=== PATIENT | female | born 1985 | race African-American/Black ===

== ENCOUNTER 2017-02-25 11:16 | Emergency (ER) | payer SELFPAY ==
[2017-02-25 11:38] LABS: URINE HCG POC HCG NEGATIVE (Negative)
[2017-02-25 11:53] LABS: BILIRUBIN,URINE NEGATIVE (NEG); CLARITY,URINE CLEAR; COLOR,URINE YELLOW; GLUCOSE,URINE NEGATIVE (NEG); NITRITE,URINE NEGATIVE (NEG); PROTEIN,URINE NEGATIVE (NEG-TRACE); RBC,URINE 0 /HPF (0-2); SQUAMOUS EPITHELIAL CELL,UR MOD /LPF; UROBILINOGEN,URINE 0.2 mg/dL (0.2 mg/dL)
[2017-02-25 11:54] LABS: BACTERIA,URINE MANY /HPF (0-FEW); BASO # 0.1 x10^3/uL (0.0-0.2); BASO % 1 % (0-3); EOS % 0 % (0-3); HEMOGLOBIN 7.9 g/dL (12.0-15.5); LYMPH # 1.4 x10^3/uL (1.0-4.8); LYMPH % 9 % (24-48); MEAN CORPUSCULAR HEMOGLOBIN 19 pg (25-35); MEAN CORPUSCULAR HGB CONC 30 g/dL (31-37); MEAN CORPUSCULAR VOLUME 63 fL (79-100); MONO # 0.9 x10^3/uL (0.0-1.1); MONO % 6 % (0-9); NEUT # 12.7 x10^3uL (1.8-7.7); NEUT % 85 % (31-73); PLATELET COUNT 477 x10^3/uL (140-400); RED BLOOD COUNT 4.13 x10^6/uL (3.50-5.40); RED CELL DISTRIBUTION WIDTH 19.8 % (11.5-14.5); WBC,URINE >40 /HPF (0-4)
[2017-02-25 11:56] LABS: YEAST,URINE PRESENT /HPF
[2017-02-25 11:58] LABS: ADD MAN DIFF? YES
[2017-02-25 12:01] LABS: ANION GAP 12 (6-14); BLOOD UREA NITROGEN 9 mg/dL (7-20); BUN/CREATININE RATIO 11 (6-20); CALCIUM 8.5 mg/dL (8.5-10.1); CARBON DIOXIDE 27 mmol/L (21-32); CHLORIDE 102 mmol/L (98-107); CREATININE 0.8 mg/dL (0.6-1.0); GFR 102.6; GLUCOSE 111 mg/dL (70-99); POTASSIUM 3.4 mmol/L (3.5-5.1); SODIUM 141 mmol/L (136-145)
[2017-02-25 12:07] LABS: ALBUMIN 3.3 g/dL (3.4-5.0); ALBUMIN/GLOBULIN RATIO 0.9 (1.0-1.7); ALK PHOS 106 U/L (46-116); ALT (SGPT) 14 U/L (14-59); AST (SGOT) 24 U/L (15-37); TOTAL BILIRUBIN 0.3 mg/dL (0.2-1.0); TOTAL PROTEIN 7.1 g/dL (6.4-8.2)
[2017-02-25 12:14] LABS: INFLUENZA A PATIENT NEGATIVE (NEGATIVE); INFLUENZA B PATIENT NEGATIVE (NEGATIVE); OBC FLU VALID
[2017-02-25] MEDS: IV NORMAL SALINE 1000ML BAG 1,000 ML IV (12:30)
[2017-02-25] MEDS: ONDANSETRON PF 4 MG/2 ML VIAL. IV (12:30)
[2017-02-25] MEDS: KETOROLAC 30 MG/ML INJ. IV (12:31)
[2017-02-25 12:51] LABS: % BASOS 1 % (0-3); % LYMPHS 8 % (24-48); % MONOS 2 % (0-10); % SEGS 89 % (35-66); ANISOCYTOSIS MOD; HYPOCHROMIA MARKED; MICROCYTOSIS MARKED; PLT ESTIMATE INCREASED (ADEQUATE); TEAR DROP CELLS OCC
[2017-02-25 12:52] LABS: OVALOCYTES OCC; POLYCHROMASIA SLIGHT; SCHISTOCYTES OCC
[2017-02-25 12:53] LABS: STOMATOCYTES FEW
[2017-02-25 13:23] LABS: NEGATIVE OBC STREP NEG; POSITIVE OBC STREP POS
== END 2017-02-25 13:40 | disposition home or self-care (01) ==
LOC: ER 11:16
DX: N39.0 Urinary tract infection, site not specified (principal); J02.0 Streptococcal pharyngitis; Z90.721 Acquired absence of ovaries, unilateral
CPT/HCPCS: 36415; 80053; 81001; 81025; 85007; 85025; 87070; 87086; 87804; 87804-59; 87880; 93005; 96361; 96374; 96375; 99285-25; J0690; J1885; J2405; J7030

== ENCOUNTER 2017-11-27 08:08 | Emergency (ER) | payer SELFPAY ==
[~2017-11-27] VITALS: Ht 165.1 cm; Wt 74.8 kg
[~2017-11-27 08:08] MED LIST: IBUP-1007 PO; NITR100C62 PO; ONDA4TAB10 SL
[2017-11-27 08:26] VITALS: BP 133/85
[2017-11-27 08:36] LABS: BILIRUBIN,URINE NEGATIVE (NEG); CLARITY,URINE CLEAR; COLOR,URINE YELLOW; NITRITE,URINE NEGATIVE (NEG); PH,URINE 5.5; PROTEIN,URINE NEGATIVE (NEG-TRACE); UROBILINOGEN,URINE 0.2 mg/dL (0.2 mg/dL)
[2017-11-27] MEDS ORDERED: ONDANSETRON PF 4 MG/2 ML VIAL. IV ONE (08:45)
[2017-11-27] MEDS ORDERED: IV NORMAL SALINE 1000ML BAG 1,000 ML IV ONE (08:45)
[2017-11-27 08:57] LABS: BASO # 0.1 x10^3/uL (0.0-0.2); BASO % 1 % (0-3); EOS # 0.1 x10^3/uL (0.0-0.7); EOS % 1 % (0-3); HEMATOCRIT 32.4 % (36.0-47.0); HEMOGLOBIN 10.1 g/dL (12.0-15.5); LYMPH # 1.6 x10^3/uL (1.0-4.8); LYMPH % 21 % (24-48); MEAN CORPUSCULAR HEMOGLOBIN 20 pg (25-35); MEAN CORPUSCULAR HGB CONC 31 g/dL (31-37); MEAN CORPUSCULAR VOLUME 65 fL (79-100); MONO # 0.6 x10^3/uL (0.0-1.1); MONO % 8 % (0-9); NEUT # 5.3 x10^3uL (1.8-7.7); NEUT % 69 % (31-73); PLATELET COUNT 411 x10^3/uL (140-400); RED CELL DISTRIBUTION WIDTH 18.8 % (11.5-14.5); WHITE BLOOD COUNT 7.7 x10^3/uL (4.0-11.0)
[2017-11-27 09:06] LABS: CALCIUM 8.9 mg/dL (8.5-10.1); CREATININE 0.7 mg/dL (0.6-1.0); GFR 118.9; POTASSIUM 3.2 mmol/L (3.5-5.1)
[2017-11-27 09:08] LABS: RBC,URINE 0 /HPF (0-2); SQUAMOUS EPITHELIAL CELL,UR MOD /LPF
[2017-11-27 09:09] LABS: BACTERIA,URINE FEW /HPF (0-FEW)
[2017-11-27 09:12] LABS: ALBUMIN 3.4 g/dL (3.4-5.0); ALBUMIN/GLOBULIN RATIO 0.7 (1.0-1.7); TOTAL BILIRUBIN 0.2 mg/dL (0.2-1.0)
--- NOTE | 2017-11-27 09:16 | PHYS DOC ---
Past Medical History Past Medical History: Other Additional Past Medical Histor: VERTIGO Past Surgical History: , Oophorectomy, Other Additional Past Surgical Histo: L OVARIAN CYST REMOVED Alcohol Use: Occasionally Drug Use: None Adult General Chief Complaint Chief Complaint: DIZZY/LIGHT HEADED HPI HPI Patient is a 32 year old female presenting with urinary frequency and a slight low back pain that has been going on for 3 days. Patient denies any nausea vomiting. She states she could be . Her last menstrual cycle was October 21, 2017. She is a 2 para 2. Denies any abdominal pain. She is also complaining of slight dizziness. She states she has history of vertigo. She states the dizziness is worse when she is ambulating. Review of Systems Review of Systems Constitutional: Denies fever or chills [] Eyes: Denies change in visual acuity, redness, or eye pain [] HENT: Denies nasal congestion or sore throat [] Respiratory: Denies cough or shortness of breath [] Cardiovascular: No additional information not addressed in HPI [] GI: Denies abdominal pain, nausea, vomiting, bloody stools or diarrhea [] : Reports urinary frequency. Denies dysuria or hematuria [] Musculoskeletal: Reports low back pain denies joint pain [] Integument: Denies rash or skin lesions [] Neurologic: Denies headache, focal weakness or sensory changes [] All other systems were reviewed and found to be within normal limits, except as documented in this note. Current Medications Current Medications Current Medications Medications (Trade) Dose Ordered Sig/Cary Start Time Stop Time Status Last Admin Dose Admin Cephalexin HCl (Keflex) 500 mg 1X STAT 11/27/17 09:17 11/27/17 09:19 DC Ondansetron HCl (Zofran) 4 mg 1X ONCE 11/27/17 08:45 11/27/17 08:46 DC 11/27/17 08:53 4 MG Potassium Chloride (Klor-Con) 40 meq 1X ONCE 11/27/17 09:30 11/27/17 09:31 DC Sodium Chloride 1,000 ml @ 1,000 mls/hr 1X ONCE 11/27/17 08:45 11/27/17 09:44 11/27/17 08:53 1,000 MLS/HR Allergies Allergies Allergies Coded Allergies Type Severity Reaction Last Updated Verified No Known Drug Allergies 11/20/14 No Physical Exam Physical Exam Constitutional: Well developed, well nourished, no acute distress, non-toxic appearance. [] HENT: Normocephalic, atraumatic, bilateral external ears normal, oropharynx moist, no oral exudates, nose normal. [] Eyes: PERRLA, EOMI, conjunctiva normal, no discharge. [] Neck: Normal range of motion, no tenderness, supple, no stridor. [] Cardiovascular:Heart rate regular rhythm, no murmur [] Lungs & Thorax: Bilateral breath sounds clear to auscultation [] Abdomen: Bowel sounds normal, soft, no tenderness, no masses, no pulsatile masses. [] Skin: Warm, dry, no erythema, no rash. [] Back: No tenderness, no CVA tenderness. [] Extremities: No tenderness, no cyanosis, no clubbing, ROM intact, no edema. [] Neurologic: Alert and oriented X 3, normal motor function, normal sensory function, no focal deficits noted. [] Psychologic: Affect normal, judgement normal, mood normal. [] Current Patient Data Vital Signs Vital Signs Date Time Temp Pulse Resp B/P (MAP) Pulse Ox O2 Delivery O2 Flow Rate FiO2 11/27/17 08:26 98.0 119 20 133/85 (101) 100 Room Air 98.0 Lab Values Laboratory Tests Test 11/27/17 08:15 11/27/17 08:17 11/27/17 08:50 Urine Collection Type Unknown Urine Color Yellow Urine Clarity Clear Urine pH 5.5 Urine Specific [place] 1.020 Urine Protein Negative mg/dL (NEG-TRACE) Urine Glucose (UA) Negative mg/dL (NEG) Urine Ketones (Stick) Negative mg/dL (NEG) Urine Blood Negative (NEG) Urine Nitrite Negative (NEG) Urine Bilirubin Negative (NEG) Urine Urobilinogen Dipstick 0.2 mg/dL (0.2 mg/dL) Urine Leukocyte Esterase Small (NEG) Urine RBC 0 /HPF (0-2) Urine WBC 1-4 /HPF (0-4) Urine Squamous Epithelial Cells Mod /LPF Urine Bacteria Few /HPF (0-FEW) Urine Mucus Mod /LPF POC Urine HCG, Qualitative Hcg positive (Negative) White Blood Count 7.7 x10^3/uL (4.0-11.0) Red Blood Count 5.00 x10^6/uL (3.50-5.40) Hemoglobin 10.1 g/dL (12.0-15.5) L Hematocrit 32.4 % (36.0-47.0) L Mean Corpuscular Volume 65 fL (79-100) L Mean Corpuscular Hemoglobin 20 pg (25-35) L Mean Corpuscular Hemoglobin Concent 31 g/dL (31-37) Red Cell Distribution Width 18.8 % (11.5-14.5) H Platelet Count 411 x10^3/uL (140-400) H Neutrophils (%) (Auto) 69 % (31-73) Lymphocytes (%) (Auto) 21 % (24-48) L Monocytes (%) (Auto) 8 % (0-9) Eosinophils (%) (Auto) 1 % (0-3) Basophils (%) (Auto) 1 % (0-3) Neutrophils # (Auto) 5.3 x10^3uL (1.8-7.7) Lymphocytes # (Auto) 1.6 x10^3/uL (1.0-4.8) Monocytes # (Auto) 0.6 x10^3/uL (0.0-1.1) Eosinophils # (Auto) 0.1 x10^3/uL (0.0-0.7) Basophils # (Auto) 0.1 x10^3/uL (0.0-0.2) Platelet Estimate Pending Maternal Serum HCG Beta Subunit 129 mIU/mL (0-5) H Sodium Level 141 mmol/L (136-145) Potassium Level 3.2 mmol/L (3.5-5.1) L Chloride Level 102 mmol/L (98-107) Carbon Dioxide Level 25 mmol/L (21-32) Anion Gap 14 (6-14) Blood Urea Nitrogen 7 mg/dL (7-20) Creatinine 0.7 mg/dL (0.6-1.0) Estimated GFR (Cockcroft-Gault) 118.9 BUN/Creatinine Ratio 10 (6-20) Glucose Level 86 mg/dL (70-99) Calcium Level 8.9 mg/dL (8.5-10.1) Total Bilirubin 0.2 mg/dL (0.2-1.0) Aspartate Amino Transferase (AST) 12 U/L (15-37) L Alanine Aminotransferase (ALT) 14 U/L (14-59) Alkaline Phosphatase 83 U/L (46-116) Total Protein 8.0 g/dL (6.4-8.2) Albumin 3.4 g/dL (3.4-5.0) Albumin/Globulin Ratio 0.7 (1.0-1.7) L Laboratory Tests 11/27/17 08:50 Laboratory Tests 11/27/17 08:50 EKG EKG [] Radiology/Procedures Radiology/Procedures [] Course & Med Decision Making Course & Med Decision Making Pertinent Labs and Imaging studies reviewed. (See chart for details) This is a 32-year-old female patient presenting to the ED today complaining of urinary frequency, slight low back pain and dizziness for couple days. Also concerned she could be . She is a 2 para 2. Positive urine hCG. Beta hCG 129. Hemoglobin 10.1. hematocrit 32.4 patient advised to take vitamins. Urine analysis noted for infection but appears contaminated. Considering her symptoms we'll put patient on cephalexin. Patient was hydrated in the ED. She is feeling better. She'll be discharged with instructions to follow-up with her AVIATION CONSULTANT as soon as possible. Dragon Disclaimer Dragon Disclaimer This electronic medical record was generated, in whole or in part, using a voice recognition dictation system. Departure Departure Impression: Primary Impression: Additional Impression: Urinary tract infection Disposition: 01 HOME, SELF-CARE Condition: STABLE Referrals: NO PCP (PCP) JARED YORK MD follow up in one week Patient Instructions: ABCs of , Back Pain in , - Urinary Tract Infection Additional Instructions: You were evaluated in the emergency room and noted to be . Please take vitamins every day. You also have urinary tract infection. Ensure you complete your antibiotics. Follow up with your AVIATION CONSULTANT as soon as possible. Come back to the emergency room at any point you have new concerning symptoms or worsening current symptoms. Scripts Ondansetron (ZOFRAN ODT) 4 Mg Tab.rapdis 1 TAB SL Q8HRS, #30 TAB Prov: FARNAZUNGTARAH Herrmann NUCLEAR REACTOR ENGINEER 11/27/17 Cephalexin (CEPHALEXIN) 500 Mg Tablet 1 TAB PO BID, #14 TAB Prov: MUTUNGATARAH NUCLEAR REACTOR ENGINEER 11/27/17 Problem Qualifiers Primary Impression: Weeks of gestation: less than 8 weeks Qualified Codes: Z3A.01 - Less than 8 weeks gestation of Additional Impression: Urinary tract infection Urinary tract infection type: site unspecified Hematuria presence: without hematuria Qualified Codes: N39.0 - Urinary tract infection, site not specified TARAH COSTA APRN Nov 27, 2017 09:16
[2017-11-27] MEDS ORDERED: CEPHALEXIN 250 MG CAPSULE. PO STA (09:17)
[2017-11-27] MEDS ORDERED: POTASSIUM CHLORIDE 20 MEQ TABLET.ER. PO ONE (09:30)
[2017-11-27] MEDS ORDERED: ONDA4TAB10 SL (09:39)
[2017-11-27] MEDS ORDERED: CEPH500T PO (09:39)
[2017-11-27 10:50] LABS: ANISOCYTOSIS SLIGHT; HYPOCHROMIA MOD; MICROCYTOSIS PRESENT; PLT ESTIMATE ADEQUATE (ADEQUATE)
== END 2017-11-27 09:58 | disposition home or self-care (01) ==
LOC: ER 08:08
DX: O23.41 Unspecified infection of urinary tract in pregnancy, first trimester (principal); M54.5 Low back pain; R42 Dizziness and giddiness; Z98.890 Other specified postprocedural states; Z3A.01 Less than 8 weeks gestation of pregnancy
CPT/HCPCS: 36415; 80053; 81001; 81025; 84702; 85025; 87086; 96361; 96374; 99284; J2405; J7030

== ENCOUNTER 2020-03-22 19:21 | Emergency (ER) | payer MEDICAID, OTHER ==
[~2020-03-22] VITALS: Ht 165.1 cm; Wt 72.7 kg
[~2020-03-22 19:21] MED LIST changes: +CEPH500T PO
[2020-03-22] MEDS ORDERED: IV NORMAL SALINE 1000ML BAG 1,000 ML IV ONE (20:00)
--- NOTE | 2020-03-22 20:07 | ED.ADGEN ---
Past Medical History Past Medical History: Other Additional Past Medical Histor: VERTIGO Past Surgical History: , Oophorectomy, Other Additional Past Surgical Histo: L OVARIAN CYST REMOVED Smoking Status: Never Smoker Alcohol Use: Occasionally Drug Use: None General Adult EDM: Chief Complaint: MULTIPLE COMPLAINTS HPI: HPI: Patient is a 34-year-old female who presents to the emergency room with multiple complaints. Patient states she has had 2 weeks of numb fingertips bilaterally. She denies any current neck pain, shooting pains into her hands, trauma. She states that they do get red and white sometimes which is unusual for her. She is also had shortness of breath when she gets up and moves around. She has epigastric and right upper quadrant abdominal pain and pressure that has been ongoing for the last couple weeks. She states she is had decreased appetite. She had 1 day where she was nauseous but otherwise has not had any nausea or vomiting. She is not had any kind of diarrhea or blood in her stools. She does not believe she has had any kind of cough. She thinks that she had a fever once. She denies any other fevers. Review of Systems: Review of Systems: Complete ROS is negative unless otherwise documented in HPI Current Medications: Current Medications Medications (Trade) Dose Ordered Sig/Cary Start Time Stop Time Status Last Admin Dose Admin Ceftriaxone Sodium (Rocephin Im) 500 mg 1X ONCE 03/22/20 23:00 03/22/20 23:01 DC 03/22/20 22:46 500 MG Potassium Chloride (Klor-Con) 40 meq 1X ONCE 03/22/20 21:30 03/22/20 21:31 DC 03/22/20 21:28 40 MEQ Sodium Chloride 1,000 ml @ 1,000 mls/hr 1X ONCE 03/22/20 20:00 03/22/20 20:59 DC 03/22/20 21:28 1,000 MLS/HR Allergies: Allergies: Allergies Coded Allergies Type Severity Reaction Last Updated Verified No Known Drug Allergies 11/20/14 No Physical Exam: PE: General: Awake, alert, NAD. Well Nourished, well hydrated. Cooperative HEENT: Atraumatic, EOMI, PERRL, airway patent, moist oral mucosa Neck: Supple, trachea midline Respiratory: CTA bilaterally, normal effort, no wheezing/crackles CV: RRR, no murmur, cap refill <2 GI: Soft, nondistended, epigastric and right upper quadrant tenderness, no masses MSK: No obvious deformities Skin: Warm, dry, intact Neuro: A&O x3, speech NL, sensory and motor grossly intact, no focal deficits Psych: Normal affect, normal mood, not suicidal or homicidal Current Patient Data: Labs: Laboratory Tests Test 03/22/20 19:27 03/22/20 19:31 03/22/20 20:18 Urine Collection Type Unknown Urine Color [place] Urine Clarity Clear Urine pH 6.0 (<5.0-8.0) Urine Specific [place] 1.020 (1.000-1.030) Urine Protein Negative mg/dL (NEG-TRACE) Urine Glucose (UA) Negative mg/dL (NEG) Urine Ketones (Stick) 15 mg/dL (NEG) Urine Blood Negative (NEG) Urine Nitrite Negative (NEG) Urine Bilirubin Moderate (NEG) Urine Urobilinogen Dipstick 1.0 mg/dL (0.2 mg/dL) Urine Leukocyte Esterase Large (NEG) Urine RBC Rare /HPF (0-2) Urine WBC 20-40 /HPF (0-4) Urine Squamous Epithelial Cells Mod /LPF Urine Bacteria Few /HPF (0-FEW) Urine Mucus Mod /LPF Urine Trichomonas Present POC Urine HCG, Qualitative Hcg negative (Negative) White Blood Count 8.8 x10^3/uL (4.0-11.0) Red Blood Count 4.59 x10^6/uL (3.50-5.40) Hemoglobin 12.7 g/dL (12.0-15.5) Hematocrit 38.3 % (36.0-47.0) Mean Corpuscular Volume 84 fL (79-100) Mean Corpuscular Hemoglobin 28 pg (25-35) Mean Corpuscular Hemoglobin Concent 33 g/dL (31-37) Red Cell Distribution Width 26.0 % (11.5-14.5) H Platelet Count 395 x10^3/uL (140-400) Neutrophils (%) (Auto) 76 % (31-73) H Lymphocytes (%) (Auto) 17 % (24-48) L Monocytes (%) (Auto) 6 % (0-9) Eosinophils (%) (Auto) 0 % (0-3) Basophils (%) (Auto) 1 % (0-3) Neutrophils # (Auto) 6.7 x10^3/uL (1.8-7.7) Lymphocytes # (Auto) 1.5 x10^3/uL (1.0-4.8) Monocytes # (Auto) 0.5 x10^3/uL (0.0-1.1) Eosinophils # (Auto) 0.0 x10^3/uL (0.0-0.7) Basophils # (Auto) 0.0 x10^3/uL (0.0-0.2) Platelet Estimate Adequate (ADEQUATE) Hypochromasia Slight Anisocytosis Marked Sodium Level 139 mmol/L (136-145) Potassium Level 2.8 mmol/L (3.5-5.1) *L Chloride Level 100 mmol/L (98-107) Carbon Dioxide Level 28 mmol/L (21-32) Anion Gap 11 (6-14) Blood Urea Nitrogen 8 mg/dL (7-20) Creatinine 0.8 mg/dL (0.6-1.0) Estimated GFR (Cockcroft-Gault) 100.6 BUN/Creatinine Ratio 10 (6-20) Glucose Level 104 mg/dL (70-99) H Calcium Level 8.8 mg/dL (8.5-10.1) Magnesium Level 2.1 mg/dL (1.8-2.4) Total Bilirubin 0.5 mg/dL (0.2-1.0) Aspartate Amino Transferase (AST) 27 U/L (15-37) Alanine Aminotransferase (ALT) 30 U/L (14-59) Alkaline Phosphatase 77 U/L (46-116) Total Protein 7.3 g/dL (6.4-8.2) Albumin 3.1 g/dL (3.4-5.0) L Albumin/Globulin Ratio 0.7 (1.0-1.7) L Laboratory Tests 03/22/20 20:18 Laboratory Tests 03/22/20 20:18 Vital Signs: Vital Signs Date Time Temp Pulse Resp B/P (MAP) Pulse Ox O2 Delivery O2 Flow Rate FiO2 03/22/20 22:00 81 117/83 (94) 100 03/22/20 19:40 97.9 18 Room Air 97.9 EKG: EKG: [] Heart Score: Risk Factors: Risk Factors: DM, Current or recent (<one month) smoker, HTN, HLP, family history of CAD, obesity. Risk Scores: Score 0 - 3: 2.5% MACE over next 6 weeks - Discharge Home Score 4 - 6: 20.3% MACE over next 6 weeks - Admit for Clinical Observation Score 7 - 10: 72.7% MACE over next 6 weeks - Early Invasive Strategies Radiology/Procedures: Radiology/Procedures: [] Course & Med Decision Making: Course & Med Decision Making Pertinent Labs and Imaging studies reviewed. (See chart for details) Patient is a 34-year-old female who presents to the emergency room with multiple complaints. Patient has a normal neurologic exam. She does not have any neck tenderness she is overall well-appearing abdominal labs will be done to evaluate for any elevated liver enzymes or abnormalities that would require further ev aluation. Lab work shows hypokalemia and trichomonas. Patient will be given potassium here in the emergency room. She will be treated for STDs empirically. I have discussed with her that her partner should be tested and treated. I have discussed that she should not have sex for the next week. We have discussed that if her abdominal pain gets worse, she develops consistent fevers, she develops vomiting she should return the emergency room for reevaluation. Patient's test results and vitals while in the ED were fully reviewed and discussed with the patient. Patient is stable and at this time does not need admission to the hospital. We have discussed strict return precautions and the importance of following up with their Primary Care Physician. Patient stated understanding and was given an opportunity to ask any questions. Patient is in agreement with plan. Nathalie Disclaimer: Nathalie Disclaimer: This electronic medical record was generated, in whole or in part, using a voice recognition dictation system. Departure Departure Impression: Primary Impression: Hypokalemia Additional Impression: Trichimoniasis Disposition: 01 DC HOME SELF CARE/HOMELESS Condition: STABLE Referrals: NO PCP (PCP) Patient Instructions: Hypokalemia-Brief, Trichomoniasis Scripts Doxycycline Hyclate (DOXYCYCLINE HYCLATE) 100 Mg Capsule 1 CAP PO BID, #14 CAP Prov: BLANCA LANG MD 03/22/20 Metronidazole (FLAGYL) 500 Mg Tablet 1 TAB PO BID, #14 TAB Prov: BLANCA LANG MD 03/22/20 Problem Qualifiers BLANCA LANG MD Mar 22, 2020 20:07
[2020-03-22 20:16] LABS: BILIRUBIN,URINE MODERATE (NEG); CLARITY,URINE CLEAR; COLOR,URINE AMBER; NITRITE,URINE NEGATIVE (NEG); PROTEIN,URINE NEGATIVE (NEG-TRACE)
[2020-03-22 20:27] LABS: BASO % 1 % (0-3); EOS % 0 % (0-3); HEMATOCRIT 38.3 % (36.0-47.0); HEMOGLOBIN 12.7 g/dL (12.0-15.5); LYMPH # 1.5 x10^3/uL (1.0-4.8); LYMPH % 17 % (24-48); MEAN CORPUSCULAR HEMOGLOBIN 28 pg (25-35); MEAN CORPUSCULAR HGB CONC 33 g/dL (31-37); MEAN CORPUSCULAR VOLUME 84 fL (79-100); MONO # 0.5 x10^3/uL (0.0-1.1); MONO % 6 % (0-9); NEUT # 6.7 x10^3/uL (1.8-7.7); NEUT % 76 % (31-73); PLATELET COUNT 395 x10^3/uL (140-400); RED BLOOD COUNT 4.59 x10^6/uL (3.50-5.40); WHITE BLOOD COUNT 8.8 x10^3/uL (4.0-11.0)
--- NOTE | 2020-03-22 20:27 | RAD ---
Exam: Acute abdominal series INDICATION: Shortness of breath. Abdominal pain TECHNIQUE: Frontal view of the chest with upright and supine views of the abdomen Comparisons: None FINDINGS: The cardiomediastinal silhouette and pulmonary vessels are within normal limits. The lung and pleural spaces are clear. Air and stool are noted throughout the colon to level the rectum in a nonobstructive bowel gas patter n. No suspicious masses or calcifications. Visual is osseous structures are unremarkable. IMPRESSION: 1. No acute cardiopulmonary process. 2. Nonobstructive bowel gas pattern. Electronically signed by: Jhonatan Bacon MD (03/22/2020 8:24 PM) [facility]
[2020-03-22 20:32] LABS: BACTERIA,URINE FEW /HPF (0-FEW); RBC,URINE RARE /HPF (0-2); WBC,URINE 20-40 /HPF (0-4)
[2020-03-22 20:33] LABS: TRICHOMONAS,URINE PRESENT
[2020-03-22 20:44] LABS: ALBUMIN 3.1 g/dL (3.4-5.0); ALBUMIN/GLOBULIN RATIO 0.7 (1.0-1.7); CALCIUM 8.8 mg/dL (8.5-10.1); CREATININE 0.8 mg/dL (0.6-1.0); GFR 100.6; TOTAL BILIRUBIN 0.5 mg/dL (0.2-1.0); TOTAL PROTEIN 7.3 g/dL (6.4-8.2)
[2020-03-22 20:45] LABS: POTASSIUM 2.8 mmol/L (3.5-5.1)
[2020-03-22 20:49] LABS: PLT ESTIMATE ADEQUATE (ADEQUATE)
[2020-03-22 20:50] LABS: ANISOCYTOSIS MARKED; HYPOCHROMIA SLIGHT
[2020-03-22] MEDS ORDERED: POTASSIUM CHLORIDE 20 MEQ TABLET.ER. PO ONE (21:30)
[2020-03-22 22:00] VITALS: BP 117/83
[2020-03-22] MEDS ORDERED: METR500T PO (22:04)
[2020-03-22] MEDS ORDERED: DOXY100C2 PO (22:04)
[2020-03-22] MEDS ORDERED: cefTRIAXone IM 500 MG VIAL. IM ONE ×2 (22:30→23:00)
== END 2020-03-22 22:15 | disposition home or self-care (01) ==
LOC: ER 19:21
DX: E87.6 Hypokalemia (principal); A59.9 Trichomoniasis, unspecified
CPT/HCPCS: 36415; 74022; 80053; 81001; 81025; 83735; 85025; 96360; 96372; 99284; J0696; J7030